=== PATIENT | male | born 1995 | race Two or more races ===

== ENCOUNTER 2017-11-17 05:45 | Emergency (ER) | payer OTHER ==
[~2017-11-17] VITALS: Ht 177.8 cm; Wt 122.5 kg
[~2017-11-17 05:45] MED LIST: ACETAMINOP160 MG/51 PO; ADDERALL10 M1 PO; BUSPAR10 MG PO; CITALOPRAM HBR20 M1 PO; MEDROL DOSEPAK4 MG PO; MIRTAZAPINE30 MG PO; NAPROXEN500 MG PO; PROVENTIL17 GM IH; SEROQUEL200 MG PO; SERTRALINE HCL50 MG PO; TOPIRAMATE100 MG PO; ULTRAM50 MG PO; VIVITROL380 MG/3.4 IM
[2017-11-17 09:00] VITALS: BP 101/69
== END 2017-11-17 09:03 | disposition home or self-care (01) ==
LOC: EME 05:45
DX: S06.0X0A Concussion without loss of consciousness, initial encounter (principal); M54.2 Cervicalgia; Y00.XXXA Assault by blunt object, initial encounter; Y92.009 Unspecified place in unspecified non-institutional (private) residence as the place of occurrence of the external cause; F17.200 Nicotine dependence, unspecified, uncomplicated
CPT/HCPCS: 70450; 99281; 99284